=== PATIENT | male | born 1980 | race Two or more races ===

== ENCOUNTER 2024-05-10 08:00 | Outpatient (RCR) | payer MEDICAID, SELFPAY ==
--- NOTE | 2024-05-08 11:45 | PT.ODAYNRPT ---
PT Outpatient Daily Note OP Daily Note Outpatient Physical Therapy Treatment Date: 05/08/24 Visit Reasons: right ankle pain Subjective: The ankle feels about the same since starting therapy. Increased pain with bending ankle back. Objective: See F/S for therex Assessment: Slow progress with goals. Pain is provoked with soleus stretching consistent with Achilles/soleus mm tendinopathy/tear. Pt may benefit from further diagnostic imaging of R ankle and calcaneus. Plan: Reassess Length of Time (minutes) of Treatment: 30 Minutes Procedure Charges Therapeutic Exercise 30 minutes: Yes
--- NOTE | 2024-05-10 08:45 | PTNOTE_ITS ---
PT OP Progress/Discharge Note Date of Service: 05/10/24 Progress Note/DC Note Progress Note/Discharge Note: DC Note Patient Information Visit Reasons: right ankle pain Service Continue Service or Discharge: Discharge Discharge Date: 05/10/24 Status Subjective: Continued pain that limits heel raises and push off with gait. No change in ssx since starting therapy. Objective: See F/S for therex R ankle AROM; DF: 12 deg PF: full with pain TTP: moderate of distal Achilles/soleus Observation: there is a protrusion and divot of distal Achilles/Soleus Assessment: Pt has attended the evaluation and 4 Rx sessions with slow progress with goals. There is a protrusion of the distal Achilles. Pain is provoked with soleus stretching consistent with Achilles/soleus muscle tendinopathy/tear and he is n ot making progress with goals. Pt may benefit from further diagnostic imaging of R ankle and calcaneus. Plan: D/C Procedure Charges Therapeutic Exercise 15 minutes: Yes
== END 2024-06-03 23:59 | disposition home or self-care (01) ==
LOC: CPTX 08:00
PROVIDERS: PCP Nurse Practitioner Family; Referring Provider Nurse Practitioner Family; Visit Provider Nurse Practitioner Family
DX: M25.571 Pain in right ankle and joints of right foot (principal)
CPT/HCPCS: 97110

== ENCOUNTER → 2024-08-17 | Outpatient (CLI) | payer MEDICAID, SELFPAY ==
--- NOTE | 2024-08-17 07:00 | XR_ITS ---
Examination: MRI right ankle, without contrast Date and time of exam: August 17, 2024 0656 hours INDICATIONS: Ankle swelling and pain post injury one year ago Technique: Multiple axial sagittal and coronal images of the right ankle have been obtained with the Siemens high-resolution 1.5 [employer] MRI scanner. Images obtained include T2-weighted fat-suppressed sagittal sections, TR 3500, TE 46, T2 weighted coronal fat suppressed images, TR 3050, TE 84, T2-weighted transverse fat suppressed images, TR 3260, TE 63, proton density transverse images, TR 4720 TE 46, and T1 weighted coronal images, TR 560, TE 13. Findings: Abnormal Achilles tendon, partial tear over a 5 cm distance ending 3.3 cm from the calcaneal insertion Mild plantar fasciitis No occult fracture Negative for sinus Tarsi syndrome Diffuse flexor tendinitis Anterior posterior inferior tibiofibular ligaments intact Talar fibular ligaments intact mild strain posterior talar fibular ligament Extensor tendons intact IMPRESSION: Abnormal Achilles tendon, partial tear over a 5 cm distance ending 3.3 cm from the calcaneal insertion Mild plantar fasciitis Mild strain posterior talofibular ligament
== END | disposition home or self-care (01) ==
PROVIDERS: Referring Provider Podiatrist; Visit Provider Podiatrist
DX: S86.021D Laceration of right Achilles tendon, subsequent encounter (principal); X58.XXXD Exposure to other specified factors, subsequent encounter; M72.2 Plantar fascial fibromatosis; M24.271 Disorder of ligament, right ankle
CPT/HCPCS: 73721

== ENCOUNTER → 2024-12-21 | Outpatient (CLI) | payer MEDICAID, SELFPAY ==
--- NOTE | 2024-12-21 07:30 | XR_ITS ---
Examination: MRI right ankle, without contrast Date and time of exam: December 21, 2024 0721 hours Comparison August 17, 2024 INDICATIONS: Laceration to the Achilles tendon, abnormal Achilles tendon partial tear over a 5 cm distance ending 3.3 cm from the calcaneal insertion on MRI ankle August 17, 2024 Technique: Multiple axial sagittal and coronal images of the right ankle have been obtained with the Siemens high-resolution 1.5 [employer] MRI scanner. Images obtained include T2-weighted fat-suppressed sagittal sections, TR 3500, TE 46, T2 weighted coronal fat suppressed images, TR 3050, TE 84, T2-weighted transverse fat suppressed images, TR 3260, TE 63, proton density transverse images, TR 4720 TE 46, and T1 weighted coronal images, TR 560, TE 13. Findings: Marked abnormal thickening of the Achilles tendon Partial tears in the Achilles tendon, sagittal image 12, extending over a distance of at least 4.5 cm, ending 26 mm from the calcaneal insertion Complete transection of the Achilles tendon not seen Mild thickening of the plantar fascia Distal tibia and distal fibula intact Anterior posterior inferior tibiofibular ligaments intact Mild strain posterior talar fibular ligament Mild diffuse flexor tendinitis IMPRESSION: Partial tears Achilles tendon extending over a distance of 4.5 cm, ending 26 mm and the calcaneal insertion, stable appearance compared to the prior study
== END | disposition home or self-care (01) ==
LOC: SMRI 07:12
PROVIDERS: Referring Provider Podiatrist; Visit Provider Podiatrist
DX: S86.021D Laceration of right Achilles tendon, subsequent encounter (principal); X58.XXXD Exposure to other specified factors, subsequent encounter
CPT/HCPCS: 73721